=== PATIENT | female | born 1955 | race Caucasian/White ===

== ENCOUNTER → 2021-03-22 14:39 | Outpatient (BNVA) | payer OTHER, SELFPAY | PROVIDERS: PCP Internal Medicine; Visit Provider Surgery Vascular Surgery | DX: I83.11 Varicose veins of right lower extremity with inflammation (principal) | CPT/HCPCS: 99202 ==

== ENCOUNTER 2021-04-05 12:54 | Outpatient (REF) | payer OTHER, SELFPAY ==
--- NOTE | ~2021-04-05 | US_ITS ---
EXAMINATION: US LOWER EXTREMITY VENOUS ULTRASOUND (REFLUX EXAM), BILATERAL CLINICAL INDICATION: Lower extremity varicose veins. COMPARISON: None. TECHNIQUE: Color-flow triplex imaging and compression Doppler was performed to evaluate both the deep and the superficial systems bilaterally. To evaluate the superficial system, the examination was performed in the upright position. Color-flow Doppler ultrasound and compression ultrasound were utilized. In addition, maneuvers were utilized to demonstrate reflux. FINDINGS: 1. DEEP VENOUS ULTRASOUND OF THE RIGHT LOWER EXTREMITY: Common Femoral Vein: Compressible, normal respiratory variation and augmented flow. Femoral Vein: Compressible, normal color-flow and augmentation. Popliteal Vein: Compressible, normal augmentation. Deep Reflux: There is no evidence of reflux in the deep system in either the common femoral vein or the popliteal vein. There is no evidence of a Mendoza's cyst. 2. SUPERFICIAL ULTRASOUND WITH DOPPLER OF RIGHT LOWER EXTREMITY: GREAT SAPHENOUS VEIN: Saphenofemoral junction: 0.5 cm; Reflux: No evidence of reflux. Max diameter: 0.5 Min diameter: 0.1 Reflux: No evidence of reflux. DUPLICATED MEDIAL GREAT SAPHENOUS VEIN: 0.2, no reflux. DUPLICATED LATERAL GREAT SAPHENOUS VEIN: None imaged. SMALL SAPHENOUS VEIN: Saphenopopliteal junction: 0.2 cm; Reflux: No evidence of reflux. VEIN OF GIACOMINI: None imaged. PERFORATORS: Location: Proximal calf. Reflux: No reflux. VARICOSITIES: Location: Proximal calf, distal thigh, at knee all measuring 1-2 mm. Reflux: No reflux. 3. DEEP VENOUS ULTRASOUND OF THE LEFT LOWER EXTREMITY: Common Femoral Vein: Compressible, normal respiratory variation and augmented flow. Femoral Vein: Compressible, normal color-flow and augmentation. Popliteal Vein: Compressible, normal augmentation. Deep Reflux: There is no evidence of reflux in the deep system in either the common femoral vein or the popliteal vein. There is no evidence of a Mendoza's cyst. 4. SUPERFICIAL ULTRASOUND WITH DOPPLER OF LEFT LOWER EXTREMITY: GREAT SAPHENOUS VEIN: Saphenopopliteal junction: 0.6 cm; Reflux: No evidence of reflux. Max diameter: 0.6. Min diameter: 0.2. Reflux: No evidence of reflux. DUPLICATED MEDIAL GREAT SAPHENOUS VEIN: 0.3 cm, no reflux. DUPLICATED LATERAL GREAT SAPHENOUS VEIN: None imaged. SMALL SAPHENOUS VEIN: Saphenofemoral junction: 0.5 cm; Reflux: No evidence of reflux. VEIN OF GIACOMINI: None imaged. PERFORATORS: Location: Proximal calf. Reflux: No reflux. VARICOSITIES: Location: Mid calf, proximal thigh, knee all measuring 2 mm. Reflux: No reflux. 3. DEEP VENOUS ULTRASOUND OF THE LEFT LOWER EXTREMITY: Common Femoral Vein: Compressible, normal respiratory variation and augmented flow. Femoral vein: Compressible, normal color flow and augmentation. Popliteal Vein: Compressible, normal augmentation. Deep Reflux: There is no evidence of reflux in the deep system in either the common femoral vein or the popliteal vein. There is no evidence of a Mendoza's cyst. ADDITIONAL: Within the mid left thigh is a 4.1 x 4.0 x 1.5 cm ovoid heterogeneously hypoechoic structure in the subcutaneous fat, possibly a lipoma. US/US venous duplex LE BI IMPRESSION: 1. No evidence of superficial venous insufficiency. 2. No evidence of deep venous insufficiency or DVT. 3. Bilateral nonrefluxing varicosities. 4. Within the subcutaneous fat of the left mid thigh is a 4.1 cm ovoid structure without internal vascularity. This is favored to represent a lipoma. Recommend continued clinical followup.
== END 2021-04-05 12:55 | disposition home or self-care (01) ==
LOC: HO.US 12:54
PROVIDERS: PCP Internal Medicine; Visit Provider Surgery Vascular Surgery
DX: I83.893 Varicose veins of bilateral lower extremities with other complications (principal); I83.11 Varicose veins of right lower extremity with inflammation
CPT/HCPCS: 93970

== ENCOUNTER → 2021-04-26 14:56 | Outpatient (BNVA) | payer OTHER, SELFPAY | PROVIDERS: PCP Internal Medicine; Visit Provider Surgery Vascular Surgery | DX: R22.41 Localized swelling, mass and lump, right lower limb (principal) | CPT/HCPCS: 99212 ==

== ENCOUNTER 2023-05-28 09:13 | Outpatient (AMB) | payer MEDICARE, MEDICAID, SELFPAY ==
--- NOTE | 2023-05-28 11:07 | MHC.OFFWIV ---
Intake Vital Signs 05/28/23 11:09 Height 5 ft 7 in BP 142/90 H Blood Pressure Location Rt brachial Position Sitting Pulse 87 Pulse Source Pulse Oximeter Temp 97.8 F Temp Source Temporal Artery Scan Pulse Oximetry (%) 97 Oxygen Delivery Method Room Air Intake Visit Reasons: EST/fell and possible broken ribs/[phone] Intake Note: pt is here for c/o rib pain due to fall yesterday, suspects ribs might be broken Patient Tobacco Use Status: Never used Tobacco Allergies house dust Allergy (Mild, Verified 05/28/23 11:24) Sneezing Medication List - Last Reconciled 05/28/23 by Jimenez Howell MD atorvastatin 40 mg PO DAILY cetirizine 10 mg PO DAILY lisinopril 20 mg PO DAILY omeprazole 20 mg PO DAILY sertraline 100 mg PO DAILY simvastatin 40 mg PO BEDTIME Do you need a note to return to daycare/school/sports/work: Yes HPI EST/fell and possible broken ribs/[phone] HPI Details 67-year-old female presents to the office for a sick visit. Patient tripped on a carpet and fell on the left side. She is having severe pain on the left side of the chest. Urination is normal. [facility] Medical History Benign essential HTN Depressive disorder Encounter for screening for malignant neoplasm of colon Esophageal reflux Fracture of unspecified carpal bone, unspecified wrist, initial encounter for closed fracture Headache, unspecified Hyperlipidemia, unspecified IBS (irritable bowel syndrome) Lactose intolerance, unspecified Personal history of irradiation Thyroid nodule Urge incontinence Varicose veins with pain Ventricular hypokinesis Vitamin D deficiency, unspecified Surgical History Hx of colonoscopy Normal endoscopy Patient Tobacco Use Status: Never used Tobacco Tobacco use type: Cigarette Physical Exam Vital Signs: Last Vital Signs Temp 97.8 F 05/28/23 11:09 Pulse 87 05/28/23 11:09 BP 142/90 H 05/28/23 11:09 Pulse Ox 97 05/28/23 11:09 Oxygen Delivery Method Room Air 05/28/23 11:09 Const General: cooperative and healthy appearing Nutritional Appearance: well nourished Orientation/consciousness: patient oriented x3 Limitations: no limitations HEENT Head: Yes normal to inspection Eyes General: appearance normal, both eyes and all related structures Neck Neck: Yes normal visual inspection Chest Other: No visible bruising. Tenderness along the margins of the 10th 11th 12th rib Resp Effort & Inspection: normal respiratory effort Neuro General: patient oriented x3 Assessment & Plan Assessment & Plan (1) Contusion of ribs: Code(s): S20.219A - Contusion of unspecified front wall of thorax, initial encounter Plan: X-ray images were personally reviewed by me. No fractures seen. Tylenol with codeine prescribed. If symptoms do not improve to follow-up here. Orders: Orders XR ribs LT min 3V w CXR1V Today S20.219A - Contusion of unspecified front wall of thorax, initial encounter Coding Level of Care Code Est Pt Level 4 (96985) Diagnoses Contusion of ribs S20.219A
[2023-05-28 11:09] VITALS: BP 142/90; PULSE 87; TEMP 36.6; O2SAT 97
== END 2023-05-28 12:33 | disposition home or self-care (01) ==
PROVIDERS: PCP Internal Medicine; Visit Provider Internal Medicine
DX: S20.219A Contusion of unspecified front wall of thorax, initial encounter (principal)
CPT/HCPCS: 99214

== ENCOUNTER 2023-05-28 11:25 | Outpatient (REF) | payer MEDICARE, MEDICAID, SELFPAY ==
--- NOTE | ~2023-05-28 | XR_ITS ---
EXAMINATION: XR RIBS, LEFT CLINICAL INFORMATION: Contusion of unspecified front wall of thorax. COMPARISON: None available. TECHNIQUE: PA view of the chest as well as 4 views of the left ribs. FINDINGS: There is no gross pneumothorax. Heart size is normal. Vertical linear opacities along the medial aspect of the right lung base, possibly related to extrathoracic etiology, parenchymal process such as scar or atelectasis versus other etiology. Mild opacities at the left lung base may represent atelectasis and/or pneumonia. Dedicated PA and lateral views of the chest recommended. Dextroscoliosis of the thoracic spine with multilevel degenerative changes. Radiopaque marker placed by the technologist to indicate the area of concern indicated by the patient overlying the lower left ribs. Visualization of the lower left ribs is limited due to overlying soft tissues. No gross displaced left rib fracture is appreciated. Surgical clips in the upper abdomen. XR/XR ribs LT min 3V w CXR1V IMPRESSION: 1. No displaced left rib fracture is appreciated. 2. Vertical linear opacities along the medial aspect of the right lung base, possibly related to extrathoracic etiology, parenchymal process such as scar or atelectasis versus other etiology. Mild opacities at the left lung base may represent atelectasis and/or pneumonia. Dedicated PA and lateral views of the chest recommended. This study was presented today May 28, 2023 at 1:12 PM for interpretation. Stat results provided at this time as requested by referring provider.
== END 2023-05-28 11:26 | disposition home or self-care (01) ==
LOC: HO.HMGCX 11:25
PROVIDERS: PCP Internal Medicine; Visit Provider Internal Medicine
DX: S20.212A Contusion of left front wall of thorax, initial encounter (principal)
CPT/HCPCS: 71101